=== PATIENT | female | born 1995 | race American Indian/Alaskan Native ===

== ENCOUNTER 2018-02-03 11:45 | Outpatient (CLI) | payer MEDICAID ==
[2018-02-03] MEDS ORDERED: LACTATED RINGERS 500 ML IV ONE (12:22)
[2018-02-03 12:34] VITALS: BP 116/67
--- NOTE | 2018-02-03 14:31 | Ultrasound Report ---
ULTRASOUND BIOPHYSICAL PROFILE: History: Decreased movement Technique: Transabdominal ultrasound with Doppler interrogation. 2 - breathing movements 2 - movements 2 - posture and tone 2 - Qualitative amniotic fluid volume 8 - TOTAL SCORE OF POSSIBLE 8 Heart Rate (bpm) 147
--- NOTE | 2018-02-03 14:31 | Ultrasound Report ---
ULTRASOUND OB LIMITED History: Decreased movement Technique: Transabdominal ultrasound with Doppler interrogation. Gestation: Single Position: Cephalic Amniotic Fluid: Normal LARISSA = 13.7 cm Heart Rate: 149 BPM
== END 2018-02-03 14:26 | disposition home or self-care (01) ==
LOC: EDSTATUS 12:06 → TRG 12:14
PROVIDERS: ATTEND Obstetrics & Gynecology
DX: O47.03 False labor before 37 completed weeks of gestation, third trimester (principal); Z3A.30 30 weeks gestation of pregnancy
CPT/HCPCS: 59025; 76815; 76819

== ENCOUNTER 2018-03-04 13:15 | Outpatient (CLI) | payer MEDICAID ==
[2018-03-04] MEDS ORDERED: LACTATED RINGERS 500 ML IV ONE (13:56)
[2018-03-04] MEDS ORDERED: TYLENOL PO ONE (14:13)
[2018-03-04 16:46] LABS: Bacteria,Urine 2+ /HPF (Negative); Bilirubin,Urine NEG (Negative); Blood,Urine NEG (Negative); Color,Urine Yellow (Yellow); Mucus,Urine FEW /HPF; Protein,Urine <15 mg/dL mg/dL (Negative)
[2018-03-04 16:53] LABS: Amphetamine Screen,Urine PRESUMPTIVE NEGATIVE; Benzodiazepines Screen,Urine PRESUMPTIVE NEGATIVE; Cannabinoid Screen,Urine PRESUMPTIVE NEGATIVE; Cocaine Screen,Urine PRESUMPTIVE NEGATIVE; Methadone Screen,Urine PRESUMPTIVE NEGATIVE; Opiate Screen,Urine PRESUMPTIVE NEGATIVE
[2018-03-04 17:30] VITALS: BP 122/78
--- NOTE | 2018-03-05 05:47 | Progress Note ---
Assessment and Plan A: at 34 weeks, 3 days gestation. Mild headache, resolved with IV hydration and oral Tylenol. Reactive NST. contractions, resolved with IV hydration. P: Discharge patient home. Patient to follow up with [facility] early this week. Warning signs discussed with pt. Pt. to return if contractions resume. Subjective - Subjective Date of service: 03/04/18 Principal diagnosis: at 34 weeks, 3 days gestation; headache, contractions Interval history: 22 year old female at 34 weeks, 3 days gestation presents to L&D with complaint of mild headache and contractions. Patient denies leaking of fluid or vaginal bleeding. She reports active movement. Patient denies visual disturbance, swelling, abdominal or epigastric pain, or nausea/vomiting. Patient reports irregular contractions. Patient reports she has not been drinking enough water. Patient receives care at [facility]. Patient reports: movement normal, contractions, no loss of fluid, no vaginal bleeding Objective - Exam Abdomen: Present: normal appearance, soft Uterus: Present: normal. Absent: tenderness FHR: category 1 Uterine Contraction Monitor Mode: External Uterine Contraction Frequency (min): Irregular Uterine Contraction Pattern: Irregular Uterine Contraction Intensity: Mild - Labs Labs: Laboratory Results - last 24 hr 03/04/18 03/04/18 16:15 16:15 Urine Color Yellow Urine Turbidity Cloudy Urine pH 7.0 Ur Specific Stephan 1.020 Urine Protein <15 mg/dl Urine Glucose (UA) Neg Urine Ketones Tr Urine Blood Neg Urine Nitrite Neg Urine Bilirubin Neg Urine Urobilinogen 2.0 Ur Leukocyte Esterase Tr Urine WBC (Auto) 2.0 Urine RBC (Auto) 1.0 U Epithel Cells (Auto) 9.0 Urine Bacteria (Auto) 2+ Urine Mucus Few Urine Yeast (Budding) 1+ Urine Opiates Screen Presumptive negative Urine Methadone Screen Presumptive negative Ur Barbiturates Screen Presumptive negative Ur Phencyclidine Scrn Presumptive negative Ur Amphetamines Screen Presumptive negative U Benzodiazepines Scrn Presumptive negative Urine Cocaine Screen Presumptive negative U Marijuana (THC) Screen Presumptive negative Drugs of Abuse Note Disclamer
== END 2018-03-04 17:20 | disposition home or self-care (01) ==
LOC: TRG 13:15
PROVIDERS: ATTEND Obstetrics & Gynecology
DX: O47.03 False labor before 37 completed weeks of gestation, third trimester (principal); Z3A.34 34 weeks gestation of pregnancy
CPT/HCPCS: 59025; 80307; 81001; 96360; 96361; J7120

== ENCOUNTER 2018-04-09 20:38 | Outpatient (CLI) | payer MEDICAID ==
--- NOTE | 2018-04-09 22:34 | Ultrasound Report ---
FINAL REPORT EXAM: US OB LIMITED HISTORY: check LARISSA TECHNIQUE: Grayscale and color-flow imaging was performed for the purpose of evaluation of LARISSA Comparison: None FINDINGS: There is demonstration of a single intrauterine gestation in cephalic position with heart rate measured at 152 beats per minute. LARISSA is measured at 10.8 centimeters. IMPRESSION: 1. Single intrauterine gestation in cephalic position with heart rate measured at 152 beats per minute. 2. LARISSA is measured at 10.8 centimeters.
--- NOTE | 2018-04-09 22:38 | Ultrasound Report ---
FINAL REPORT EXAM: US OB BPP WO NON-STRESS HISTORY: decreased movement TECHNIQUE: Grayscale imaging of the uterus was performed for the purpose of evaluation of biophysical profile. Comparison: None FINDINGS: Biophysical scores are as follows: breathing movements score 2 movements score 2 posture and tone score 2 Qualitative amniotic fluid volume score 2 heart rate is measured at 152 beats per minute. IMPRESSION: 1. Biophysical profile 02/22.
[2018-04-10 02:13] VITALS: BP 108/53
--- NOTE | 2018-04-10 07:28 | Event Note ---
Date: 04/09/18 Triage note for 04/09/18: 23 year old at 39 weeks, 4 days gestation presents to triage to R/O labor. She also complains of slightly decreased movement today but admits she is not doing her daily movement counts as she has previously been instructed to do. Patient denies falls or abdominal trauma. She denies abdominal pain, vaginal bleeding, or leaking of fluid. She reports some intermittent mild contractions which she states have not worsened. Pt. denies urinary symptoms. Patient is well appearing, A&O, NAD. Vital signs are stable. Abdomen is soft, nontender. Fetus is moving actively during exam. NST reactive. 1 small brief variable noted. BPP and LARISSA obtained. BPP is 8/8 and LARISSA is normal. SVE: closed , thick, posterior, soft. Pt. reports she now feels good movement. Reviewed in detail with patient how to perform daily movement counts and recommended she do these every day. Signs of labor discussed. Advised pt. to follow up with [facility] this week at her scheduled appointment. Discharged pt. home in good condition.
== END 2018-04-09 22:30 | disposition home or self-care (01) ==
LOC: SPVWC 20:38 → TRG 20:45 → SPVWC 22:30
PROVIDERS: ATTEND Obstetrics & Gynecology
DX: O62.8 Other abnormalities of forces of labor (principal); Z3A.39 39 weeks gestation of pregnancy
CPT/HCPCS: 59025; 76815; 76819

== ENCOUNTER 2018-04-10 14:46 | Outpatient (CLI) | payer MEDICAID ==
[2018-04-10 16:51] LABS: Hematocrit 32.5 % (30.3-42.9); Mean Corpuscular HGB Conc 34 % (30-34); Mean Corpuscular Hemoglobin 29 pg (28-32); Mean Corpuscular Volume 87 fl (79-97); Platelet Count 238 K/mm3 (140-440); Red Blood Count 3.76 M/mm3 (3.65-5.03)
[2018-04-10 17:03] VITALS: BP 128/70
[2018-04-10 17:15] LABS: Alanine Aminotransferase 20 units/L (7-56); Uric Acid 4.4 mg/dL (3.5-7.6)
[2018-04-10 17:21] LABS: Bacteria,Urine 2+ /HPF (Negative); Bilirubin,Urine NEG (Negative); Blood,Urine NEG (Negative); Color,Urine Yellow (Yellow); Mucus,Urine 3+ /HPF
== END 2018-04-10 18:10 | disposition home or self-care (01) ==
LOC: TRG 14:46
PROVIDERS: ATTEND Obstetrics & Gynecology
DX: O47.03 False labor before 37 completed weeks of gestation, third trimester (principal); Z3A.32 32 weeks gestation of pregnancy
CPT/HCPCS: 36415; 59025; 81001; 82565; 83615; 84450; 84460; 84550; 85027